=== PATIENT | male | born 1955 | race Caucasian/White ===

== ENCOUNTER 2016-05-02 10:51 | Emergency (ER) | payer BC ==
[~2016-05-02] VITALS: Ht 170.2 cm; Wt 59.0 kg
== END 2016-05-02 12:17 | disposition short-term general hospital (02) ==
LOC: ER 10:51
PROC: 0HQGXZZ Repair Left Hand Skin, External Approach (ICD-10-PCS; principal; 2016-05-02)
DX: S62.522B Displaced fracture of distal phalanx of left thumb, initial encounter for open fracture (principal); S61.112A Laceration without foreign body of left thumb with damage to nail, initial encounter; Z23 Encounter for immunization; W23.0XXA Caught, crushed, jammed, or pinched between moving objects, initial encounter